=== PATIENT | female | born 1980 | race Caucasian/White ===

== ENCOUNTER 2016-07-07 23:14 | Emergency (ER) | payer OTHER ==
[~2016-07-07] VITALS: Ht 175.3 cm; Wt 115.8 kg
[~2016-07-07 23:14] MED LIST: AMOXICILLIN500 MG PO; AMPICILLIN TRI500 MG PO; ASPIR-LOW81 MG PO; BUSPAR10 MG PO; CLONAZEPAM0.5 MG PO; DIFLUCAN150 MG PO; ENDOCET 5-3251 EACH PO; FIORICET 50-301 EACH PO; FIORICET,ESG1 TABLET PO; K-DUR20 MEQ PO; KLONOPIN0.5 M1 PO; LEXAPRO20 MG PO; MECLIZINE HCL25 MG PO; METRONIDAZOLE500 MG PO; MOTRIN600 MG PO; MOTRIN800 MG PO; MYLICON,MYLANTA80 MG PO; NO MEDS; PREDNISONE20 MG PO; TESSALON PERLE100 MG PO; ULTRACET1 TABLET PO; ULTRAM50 MG PO; VENTOLIN HFA18 GM IH; VERAPAMIL HCL240 MG PO; WELLBUTRIN XL300 MG PO
[2016-07-08 01:43] LABS: INFLUENZA A VIRAL ANTIGEN NEGATIVE; INFLUENZA B VIRAL ANTIGEN POSITIVE
[2016-07-08] MEDS ORDERED: ZITHROMAX Z-PA250 MG PO (01:53)
[2016-07-08] MEDS ORDERED: ROBITUSSIN AC,T10 ML PO (01:53)
[2016-07-08 02:14] VITALS: BP 121/71
== END 2016-07-08 02:19 | disposition home or self-care (01) ==
LOC: EME 23:14
PROVIDERS: Physician Assistant
DX: J10.1 Influenza due to other identified influenza virus with other respiratory manifestations (principal); J20.9 Acute bronchitis, unspecified
CPT/HCPCS: 71020; 87502; 87651 90; 94640; 99281; 99284

== ENCOUNTER 2017-11-10 06:13 | Emergency (ER) | payer OTHER ==
[~2017-11-10] VITALS: Ht 175.3 cm; Wt 118.7 kg
[~2017-11-10 06:13] MED LIST changes: +ROBITUSSIN AC,T10 ML PO; +ZITHROMAX Z-PA250 MG PO
[2017-11-10] MEDS ORDERED: NAPROSYN500 MG PO (08:01)
[2017-11-10] MEDS ORDERED: FLONASE16 G1 BOTH NARES (08:01)
[2017-11-10 08:15] VITALS: BP 123/65
== END 2017-11-10 08:20 | disposition home or self-care (01) ==
LOC: EME 06:13
DX: R51 Headache (principal); H65.91 Unspecified nonsuppurative otitis media, right ear; F17.200 Nicotine dependence, unspecified, uncomplicated; F32.9 Major depressive disorder, single episode, unspecified
CPT/HCPCS: 99281; 99285; J1100; J1200; J1885; J2765; J7030

== ENCOUNTER 2017-11-23 21:27 | Emergency (ER) | payer OTHER ==
[~2017-11-23] VITALS: Ht 175.3 cm; Wt 118.7 kg
[~2017-11-23 21:27] MED LIST changes: +FLONASE16 G1 BOTH NARES; +NAPROSYN500 MG PO
[2017-11-23 22:59] LABS: APPEARANCE CLEAR ((CLEAR)); BILIRUBIN NEGATIVE; BLOOD NEGATIVE; COLOR YELLOW ((YELLOW)); GLUCOSE (STRIP) NEGATIVE; KETONES NEGATIVE; LEUKOCYTES NEGATIVE; NITRITE NEGATIVE; PROTEIN (STRIP) NEGATIVE; SPECIFIC GRAVITY 1.012 (1.000-1.030); UCUL ADDED? NO; UROBILINOGEN 0.2 MG/DL (0.2-1.0)
[2017-11-23] MEDS ORDERED: CLOTRIMAZOLE-321 GM VG (23:14)
[2017-11-23 23:37] VITALS: BP 112/82
== END 2017-11-23 23:38 | disposition home or self-care (01) ==
LOC: EME 21:27
PROVIDERS: Emergency Medicine
DX: N76.0 Acute vaginitis (principal); F32.9 Major depressive disorder, single episode, unspecified; F17.200 Nicotine dependence, unspecified, uncomplicated; Z88.8 Allergy status to other drugs, medicaments and biological substances
CPT/HCPCS: 81003; 81025; 99281; 99284